=== PATIENT | male | born 1970 | race Two or more races ===

== ENCOUNTER 2022-10-10 05:25 | Day surgery (SDC) | payer OTHER ==
[~2022-10-10] VITALS: Ht 182.9 cm; Wt 107.0 kg
[~2022-10-10 05:25] MED LIST: ATACAND32 MG PO; FARXIGA10 MG PO; NABUMETONE500 MG PO; ROBAXIN PO
[2022-10-10] MEDS ORDERED: CILOXAN5 ML OTIC (12:46)
[2022-10-10] MEDS ORDERED: CEPHALEXIN500 M1 PO (12:46)
== END 2022-10-10 16:20 | disposition home or self-care (01) ==
LOC: CIR.AMB 05:25
PROVIDERS: ATTEND Otolaryngology Otology & Neurotology
DX: H80.82 Other otosclerosis, left ear (principal); H90.A12 Conductive hearing loss, unilateral, left ear with restricted hearing on the contralateral side; Z88.2 Allergy status to sulfonamides; Z20.822 Contact with and (suspected) exposure to COVID-19; I10 Essential (primary) hypertension; E11.9 Type 2 diabetes mellitus without complications